=== PATIENT | female | born 1990 | race Caucasian/White ===

== ENCOUNTER 2021-03-22 01:12 | Inpatient (IN) | payer OTHER ==
[2021-03-22] MEDS: LACTATED RINGERS 1,000 ML IV SCH ×3 (01:45→19:18)
[2021-03-22] MEDS ORDERED: BUTORPHANOL 1 MG/ML 1 ML VIAL IV PRN (01:57)
[2021-03-22] MEDS ORDERED: CARBOPROST TROMETHAMINE 250 MCG/ML 1 ML AMP IM PRN (01:59)
[2021-03-22] MEDS ORDERED: OXYTOCIN 10 UNIT/ML 1 ML VIAL IM PRN (01:59)
[2021-03-22] MEDS ORDERED: LIDOCAINE 0.5% (PF) 5 MG/ML (50 ML SDV) SQ PRN (01:59)
[2021-03-22] MEDS ORDERED: METHYLERGONOVINE 0.2 MG/ML 1 ML AMP IM PRN (01:59)
[2021-03-22] MEDS ORDERED: TERBUTALINE 1 MG/ML VIAL SQ PRN (01:59)
[2021-03-22 02:16] LABS: Basophils % (A) 0 %; Eosinophils # (A) 0.3 k/uL (0-0.7); Eosinophils % (A) 3 %; HGB 10.5 gm/dL (11.4-16.0); Hypochromasia Slight; Lymphocytes # (A) 2.3 k/uL (1.0-4.8); Lymphocytes % (A) 22 %; MCH 28.3 pg (25.0-35.0); MCHC 32.9 g/dL (31.0-37.0); Mean Platelet Volume 9.1; Monocytes # (A) 0.7 k/uL (0-1.0); Monocytes % (A) 7 %; Neutrophils # (A) 6.8 k/uL (1.3-7.7); Neutrophils % (A) 66 %; Platelet Count 252 k/uL (150-450); RBC 3.72 m/uL (3.80-5.40); WBC 10.4 k/uL (3.8-10.6)
[2021-03-22] MEDS ORDERED: OXYTOCIN 30 UNITS/500 ML NS 30 UNIT in SALINE 1 500ML.BAG IV SCH ×2 (06:00→16:45)
[2021-03-22] MEDS ORDERED: SODIUM CHLORIDE 0.9% 100 ML BAG ONE (08:51)
[2021-03-22] MEDS ORDERED: ROPIVACAINE 5MG/ML 20ML VIAL ONE (08:51)
[2021-03-22] MEDS ORDERED: fentaNYL (PF) 50 MCG/ML 5 ML AMP ONE (08:51)
--- NOTE | 2021-03-22 08:51 | P.HPOB ---
History of Present Illness H&P Date: 03/22/21 Chief Complaint: 39-0/7 weeks, spontaneous rupture of membranes The patient is a 30-year-old 1 para 0 admitted at 39-0/7 weeks as established by last menstrual period and confirmed by second trimester ultrasound. She is admitted with documented spontaneous rupture of membranes for clear fluid but minimal contractions. Her has been essentially uncomplicated. She is Rh- and received RhoGAM at approximately 30 weeks. She additionally had an ultrasound demonstrating growth at the 90th percentile at 36 weeks. Group B strep status is negative. Obstetrical history: 1 para 0 with current statistics listed in history present illness. EDC of 03/29/2021 was established by last menstrual period and confirmed by second trimester ultrasound. Laboratory workup demonstrates a blood type of O- with a negative antibody screen. Rubella status is immune. The remainder of laboratory workup was within normal limits. One hour Glucola was normal and group B strep status is negative. Gynecologic history: Unremarkable with no history of any infections to include STDs. Review of Systems Review of systems is confined to history of present illness. Past Medical History Past Medical History: No Reported History History of Any Multi-Drug Resistant Organisms: None Reported Past Surgical History: Appendectomy Past Anesthesia/Blood Transfusion Reactions: No Reported Reaction Past Psychological History: No Psychological Hx Reported Smoking Status: Never smoker Past Drug Use History: None Reported - Past Family History Father Family Medical History: No Reported History Medications and Allergies Home Medications Medication Instructions Recorded Confirmed Type Pnv No.95/Ferrous Fum/Folic AC 1 tab PO ONCE 03/22/21 03/22/21 History [ Multivitamin Tablet] Allergies Allergy/AdvReac Type Severity Reaction Status Date / Time No Known Allergies Allergy Verified 03/22/21 01:58 Exam Vital Signs Temp Pulse Resp BP Pulse Ox 03/22/21 01:58 96.3 F L 104 H 16 142/87 99 Intake and Output 03/21/21 03/22/21 03/22/21 22:59 06:59 14:59 Other: Weight 100.698 kg In general, this is a well-developed, well-nourished white female in some discomfort as she is now in early active labor. Her heart has a regular rhythm and rate without murmur. Her lungs are clear to auscultation bilaterally in all littlejohn. Her abdomen is gravid, nondistended, soft, nontender, and without any palpable masses aside from uterine fundus. Her extremities without any cyanosis, clubbing, or significant edema and are nontender to palpation bilaterally. Digital cervical examination on straights her cervix to be 47 m dilated, 80% effaced, the vertex in presentation at -2 station. Spontaneous rupture of membranes has been documented with clear fluid. Results Result Diagrams: 03/22/21 01:40 Abnormal Lab Results - Last 24 Hours (Table) 03/22/21 Range/Units 01:40 RBC 3.72 L (3.80-5.40) m/uL Hgb 10.5 L (11.4-16.0) gm/dL Hct 32.0 L (34.0-46.0) % Assessment and Plan (1) Term Current Visit: Yes Status: Acute Code(s): Z34.90 - ENCNTR FOR SUPRVSN OF NORMAL , UNSP, UNSP TRIMESTER SNOMED Code(s): 61096513 (2) Spontaneous rupture of amniotic membranes Current Visit: Yes Status: Acute Code(s): IUR0337 - SNOMED Code(s): 355450652 Plan: The patient is admitted for active management of labor. She will continue to have close maternal and surveillance and expectant management will be practiced. Pitocin augmentation has been started. She is a good candidate for either IV or epidural analgesia, whichever she may choose.
[2021-03-22] MEDS ORDERED: CITRIC ACID-SODIUM CITRATE 15 ML CUP PO ONE (15:12)
[2021-03-22] MEDS ORDERED: ONDANSETRON 4 MG/2 ML VIAL ONE (15:30)
[2021-03-22] MEDS ORDERED: MORPHINE SULFATE (PF) 0.3 MG/0.3 ML SYR ONE (15:30)
[2021-03-22] MEDS ORDERED: NALBUPHINE 10 MG/ML (1 ML AMP) ONE (15:30)
[2021-03-22] MEDS ORDERED: KETOROLAC 15 MG/ML 1 ML VIAL ONE (15:30)
[2021-03-22] MEDS ORDERED: OXYTOCIN 30 UNITS/500 ML NS BAG IV ONE (15:30)
[2021-03-22] MEDS ORDERED: NALOXONE 0.4 MG/ML 1 ML VIAL IV PRN ×2 (15:58→16:32)
[2021-03-22] MEDS ORDERED: HYDROmorphone 0.5 MG/0.5 ML SYRINGE IVP PRN (15:58)
[2021-03-22] MEDS ORDERED: KETOROLAC 15 MG/ML 1 ML VIAL IVP PRN (15:58)
[2021-03-22] MEDS ORDERED: ONDANSETRON 4 MG/2 ML VIAL IVP PRN ×2 (15:58→16:32)
[2021-03-22] MEDS ORDERED: diphenhydrAMINE 50 MG/ML 1 ML VIAL IVP PRN ×3 (15:58→16:32)
[2021-03-22] MEDS ORDERED: HYDROmorphone 2 MG TAB PO PRN ×2 (16:32)
[2021-03-22] MEDS ORDERED: METOCLOPRAMIDE 5 MG/ML 2 ML VIAL IVP PRN (16:32)
[2021-03-22] MEDS ORDERED: SIMETHICONE 80 MG CHEWABLE PO PRN (16:32)
[2021-03-22] MEDS ORDERED: diphenhydrAMINE 50 MG CAP PO PRN (16:32)
[2021-03-22] MEDS ORDERED: ZOLPIDEM 5 MG TAB PO PRN (16:32)
[2021-03-22] MEDS ORDERED: diphenhydrAMINE 25 MG CAP PO PRN (16:32)
[2021-03-22] MEDS ORDERED: LANOLIN CREAM 5 GM TUBE TOPICAL PRN (16:32)
--- NOTE | 2021-03-22 16:47 | P.OP ---
Date of Procedure: 03/22/21 Preoperative Diagnosis: #1. 39-0/7 weeks, arrest of descent in the second stage of labor #2. Suspected macrosomia #3. occiput posterior position #4. Undesired fertility Postoperative Diagnosis: Same Procedure(s) Performed: #1. Primary low-transverse section #2. Intraoperative bilateral tubal occlusion with Filshie clips Anesthesia: spinal Surgeon: Jask[facility] Scientist #1: Ingris Rene Estimated Blood Loss (ml): 350 IV fluids (ml): 1,000 Urine output (ml): 100 Pathology: none sent Condition: stable Disposition: floor Operative Findings: Preoperative a, the patient reached complete and 0 to -1 station and began pushing. She pushed effectively for approximately 1-1/2 hours with no descent of station below 0 station. Examination noted the fetus to be in likely t he direct occiput posterior position. Additionally the patient was noted to have a coccyx which pointed directly into the vaginal canal providing an obstruction as well from a history of previous coccygeal injury. She was counseled and taken the operating room where she was delivered of a viable 8 lbs. 5 oz. baby boy with Apgars of 8 at 1 minute and 9 at 5 minutes delivered in the direct occiput posterior position. The placenta was delivered manually, intact, and grossly normal with a grossly normal three-vessel cord. The uterus, tubes, and ovaries were entirely normal to inspection. There was a laceration of the uterine incision at the right angle of the incision which went towards the cervix fairly deeply. Immediately after delivery of the head up and through the incision, there was blood in the Jaffe catheter which continued throughout the entire course of the case which was thought to be due to the head being buried deep within the pelvis in the trauma of elevating the head up and through the pelvic inlet with Jaffe catheter in place. There appeared to be significant space between any of the incision line and the margin of the bladder edge meeting that it appeared very unlikely that a closure stitch on the uterine incision had penetrated the bladder.. Description of Procedure: The patient was prepped and draped in usual fashion after spinal anesthesia was administered by the anesthesiologist. A Pfannenstiel incision was made and extended into the abdominal cavity without difficulty. The bladder peritoneum appeared to be distal by a significant amount to the intended site of incision. A 2 cm incision was made in the transverse plane of the lower uterine segment to enter the uterus at which time clear fluid was again noted. The incision was extended in both directions using the bandage scissors. The head was encountered deep within the pelvis and wedged very tightly. I was able to underneath the head and elevated up and through the incision where the nose and mouth were thoroughly suctioned. Remainder of the was delivered onto the field where the cord was doubly clamped, cut, and the passed resuscitative measures with weight and Apgars as noted above. cord blood was collected for evaluation for the necessity of RhoGAM prior to discharge. A segment of cord was doubly clamped, cut, and set aside should cord gases be necessary. The placenta was delivered manually and intact as noted above. The uterus was exteriorized and the interior cavity uterus swept of any remaining placental or membranous fragments. There was noted to be a fairly lengthy extension at the right angle of the uterine incision towards the cervix which did not appear to involve the bladder. The urine was noted to be at least blood-tinged from the moment of the delivery of the head indicating probable bladder neck trauma with the Jaffe bulb between my hand, the head, and the bladder itself. The margins of the incision were grasped with Roberts clamps and the incision closed continuously from one margin to the other and then continued down through the extension towards the bladder. Care was taken to make certain that there was between the perceived edge of the bladder and the uterine incision. The first layer of closure was with a running locking stitch of 0 chromic catgut from margin to margin. This was followed by a running imbricating layer of 0 chromic catgut from margin to margin though it was stopped before getting deep into the extension as there was no ongoing bleeding. The incision was examined and appeared to be hemostatic. Urine remained relatively frankly bloody throughout the case. The posterior cul-de-sac was suctioned with a guard and the patient again questioned regarding desire for tubal occlusion to which she agreed. A Filshie clip was placed across the isthmic portion of each fallopian tube and firmly affixed. The uterus was replaced within the abdominal cavity and the gutters swept of any remaining blood, fluid, or clot. The incision was again reexamined and found to be hemostatic. The parietal peritoneum was loosely reapproximated in the layer of muscles examined and made hemostatic with the Bovie. The fascia was closed with 2 running stitches of 0 Vicryl proceeding from the lateral margins to the mid point. The subcutaneous tissues were irrigated, made hemostatic with the Bovie, and reapproximated with a running stitch of 30 plain catgut. The skin was reapproximated with a running subcuticular stitch of 4-0 Vicryl followed by half-inch Steri-Strips placed with Mastisol. Estimated blood loss for the case is approximately 350 mL. There were no complications aside from the continued bloody urine noted in the catheter. All sponge, instrument, and needle counts were correct. The patient tolerated the procedure well and proceeded to the recovery room in stable condition. Both mother and are resting comfortably in recovery.
[2021-03-22] MEDS: IBUPROFEN 600 MG TAB PO SCH (18:21)
[2021-03-23] MEDS ORDERED: IBUPROFEN 600 MG TAB PO ONE (00:30)
[2021-03-23] MEDS: ACETAMINOPHEN TAB 500 MG TAB PO SCH ×4 (03:43→19:50)
[2021-03-23] MEDS: SENNOSIDES-DOCUSATE SODIUM 1 EACH TAB PO SCH ×3 (03:50→19:48)
--- NOTE | 2021-03-23 07:12 | P.PN ---
Progress Note - Text Progress Note Date: 03/23/21 Postoperative day 1 status post section under spinal anesthesia, and intrathecal morphine given for postoperative analgesia, patient doing well, there is no anesthesia related complications, Patient had no headache, vital signs stable , Assessment and plan= postop day 1 status post , doing well there is no anesthesia related complication.
[2021-03-23 07:14] LABS: Basophils % (A) 0 %; Eosinophils # (A) 0.1 k/uL (0-0.7); Eosinophils % (A) 1 %; HCT 29.2 % (34.0-46.0); HGB 9.5 gm/dL (11.4-16.0); Hypochromasia Slight; Lymphocytes # (A) 1.9 k/uL (1.0-4.8); Lymphocytes % (A) 19 %; MCH 28.8 pg (25.0-35.0); MCHC 32.5 g/dL (31.0-37.0); MCV 88.6 fL (80.0-100.0); Mean Platelet Volume 9.4; Monocytes # (A) 0.5 k/uL (0-1.0); Monocytes % (A) 5 %; Neutrophils # (A) 7.5 k/uL (1.3-7.7); Neutrophils % (A) 74 %; Platelet Count 194 k/uL (150-450); RBC 3.29 m/uL (3.80-5.40); RDW 14.8 % (11.5-15.5); WBC 10.1 k/uL (3.8-10.6)
--- NOTE | 2021-03-23 08:36 | P.PNOBGPC ---
Subjective - Subjective Interval history: The patient reports she has not yet voided nor ambulated on her own. Patient reports: Reports appetite normal, Reports pain well controlled : doing well Objective - Vital Signs Latest vital signs: Vital Signs Temp Pulse Resp BP Pulse Ox 03/23/21 05:32 16 03/23/21 04:00 98.3 F 93 16 118/67 100 03/22/21 22:59 16 03/22/21 20:58 99 03/22/21 20:00 98.2 F 79 16 115/74 99 03/22/21 18:58 16 03/22/21 18:30 74 15 111/74 03/22/21 18:00 69 15 102/69 98 03/22/21 17:30 84 16 109/70 98 03/22/21 17:15 77 16 115/71 97 03/22/21 17:00 83 15 106/59 97 03/22/21 16:58 15 95 03/22/21 16:45 85 16 111/64 95 03/22/21 16:30 96.6 F L 88 15 98/56 95 Intake and Output 03/22/21 03/23/21 03/23/21 22:59 06:59 14:59 Intake Total 32.65 Output Total 120 Balance -87.35 Intake: Intake, IV Titration 32.65 Amount Oxytocin 30 Units/500 ml 32.65 Ns 30 unit In Saline 1 500ml.bag @ Per Protocol IV .Q0M [facility] Rx#:[id number] Output: Urine 120 Other: Voiding Method Indwelling Catheter - Exam Extremities: Present: normal Abdomen: Present: normal appearance, soft. Absent: distention, tenderness Incision: Present: normal, dry, intact Uterus: Present: normal, firm (The uterine fundus as tonic and minimally tender below the umbilicus.) - Labs Labs: Abnormal Lab Results - Last 24 Hours (Table) 03/23/21 Range/Units 06:43 RBC 3.29 L (3.80-5.40) m/uL Hgb 9.5 L (11.4-16.0) gm/dL Hct 29.2 L (34.0-46.0) % Assessment and Plan (1) Term Current Visit: Yes Status: Acute Code(s): Z34.90 - ENCNTR FOR SUPRVSN OF NORMAL , UNSP, UNSP TRIMESTER SNOMED Code(s): 65142480 (2) Spontaneous rupture of amniotic membranes Current Visit: Yes Status: Acute Code(s): NAQ4105 - SNOMED Code(s): 570667569 (3) S/P section Current Visit: Yes Status: Acute Code(s): Z98.891 - HISTORY OF UTERINE SCAR FROM PREVIOUS SURGERY SNOMED Code(s): 359290397 Plan: The significant hematuria which was noted immediately after surgery has cleared overnight and the Jaffe catheter has been removed. The patient has yet to void on her own. She otherwise will continue to have routine and postoperative care and I have strongly encouraged her to ambulate in the hallways routinely today. Possible discharge tomorrow pending no complications.
[2021-03-23] MEDS: IBUPROFEN 600 MG TAB PO SCH ×5 (08:41→22:25)
[2021-03-23] MEDS: LACTATED RINGERS 1,000 ML IV SCH ×2 (22:05)
[2021-03-24] MEDS: ACETAMINOPHEN TAB 500 MG TAB PO SCH ×2 (01:07→08:53)
[2021-03-24] MEDS: IBUPROFEN 600 MG TAB PO SCH (04:02)
--- NOTE | 2021-03-24 08:45 | P.DS ---
Providers Date of admission: 03/22/21 01:17 Expected date of discharge: 03/24/21 Attending physician: Jaskaran Carrillo Primary care physician: Stated None - Discharge Diagnosis(es) (1) Term Current Visit: Yes Status: Acute (2) Spontaneous rupture of amniotic membranes Current Visit: Yes Status: Acute (3) S/P section Current Visit: Yes Status: Acute Hospital Course: with documented spontaneous rupture of membranes with clear fluid and minimal contractions. Her was uncomplicated though she was a late transfer to our office at approximately 30 weeks. She also is Rh- and received RhoGAM at 30 weeks. She additionally was found to have a fetus growing at the 90th percentile at 36 weeks and group B strep status was negative.she additionally had requested a tubal ligation should On labor and delivery, she was making little progress on her own and had Pitocin augmentation started. She made steady progress throughout the day and ultimately did progress to complete and then pushed for approximately 1-1/2 hours effectively but had no descent below approximately 0 station. Examination demonstrated a fetus to be in the direct occiput posterior position with some anatomic concerns with maternal anatomy as her coccyx was noted directly anteriorly secondary to a former break or injury. Given these findings, she was taken to the operating room where sheunderwent a primary low-transverse section with intraoperative bilateral tubal occlusion with Filshie clips and was delivered of a viable8 lbs. 5 oz. baby boy with Apgars of 8 at 1 minute and 9 at 5 minutes. She did have frankly bloody urine at the end of the case secondary to the baby's head being located deep within the pelvis and likely bladder neck trauma with the Jaffe bulb. The urine was clear the following morning and the Jaffe catheter was removed. It remained clear throughout and she was able to urinate on her own without difficulty. Vital signs being stable and she was afebrile throughout. She was deemed stable for discharge on postoperative day #2 was discharged home to follow-up in the office 2 weeks for an incision check and 6 weeks routinely. Discharge instructions included calling for any significantly increased bleeding or foul-smelling lochia, significantly increased fever or abdominal pain, perineal complaints, breast complaints, incisional complaints, or anything else that concerned her. She was additionally instructed to have nothing in the vagina for at least 6 weeks time to include intercourse. She was additionally instructed to do no heavy lifting over the same period of time and to abstain from driving until off of all pain medication or 2 weeks' time, whichever came first. She understood her instructions and agrees to follow up as noted above. Discharge medications included continued vitamins as she has opted to breast-feed. She was additionally provided a prescription for Tylenol 3, 1-2 by mouth every 6 hours when necessary pain, #20 dispensed with no refills. She is also to use [id number] analgesic pain medications as needed.was O- and she did have cord blood sent for evaluation for the necessity of RhoGAM prior to discharge. Rubella status is immune.9.5 and 29.2 respectively. She was instructed to use iron sulfate Procedures: #1. Pitocin augmentation #2. Epidural analgesia #3. Primary low-transverse section #4. Intraoperative bilateral tubal occlusion with Filshie clips Patient Condition at Discharge: Stable Plan - Discharge Summary New Discharge Prescriptions: No Action Pnv No.95/Ferrous Fum/Folic AC [ Multivitamin Tablet] 1 tab PO ONCE Discharge Medication List Pnv No.95/Ferrous Fum/Folic AC [ Multivitamin Tablet] 1 tab PO ONCE 03/22/21 [History] Follow up Appointment(s)/Referral(s): Jaskaran Carrillo MD [STAFF PHYSICIAN] - 2 Weeks Discharge Disposition: HOME SELF-CARE
[2021-03-24] MEDS: SENNOSIDES-DOCUSATE SODIUM 1 EACH TAB PO SCH (08:53)
[2021-03-24 09:15] VITALS: BP 136/88; PULSE 81; RESP 16; TEMP 98.4
== END 2021-03-24 10:13 | disposition home or self-care (01) | DRG 785 ==
LOC: FBPOP 01:12 → 4FBP 01:17
PROVIDERS: ADMIT Obstetrics & Gynecology; ATTEND Obstetrics & Gynecology
PROC: 0UB70ZZ Excision of Bilateral Fallopian Tubes, Open Approach (ICD-10-PCS; 2021-03-22)
PROC: 10D00Z1 Extraction of Products of Conception, Low, Open Approach (ICD-10-PCS; principal; 2021-03-22 15:14)
DX: O62.1 Secondary uterine inertia (principal); Z30.2 Encounter for sterilization; Z37.0 Single live birth; Z3A.39 39 weeks gestation of pregnancy; R31.9 Hematuria, unspecified
CPT/HCPCS: 85025; 86780; 86850; 86900; 86901; 87340